=== PATIENT | male | born 1975 | race African-American/Black ===

== ENCOUNTER 2017-04-16 00:09 | Emergency (ER) | payer MEDICAID ==
[~2017-04-16] VITALS: Ht 167.6 cm; Wt 63.6 kg
[2017-04-16] MEDS ORDERED: FLUO-191 PO (00:23)
[2017-04-16] MEDS ORDERED: ABAC1TAB15 PO (00:23)
[2017-04-16] MEDS ORDERED: SULF1TAB42 PO (00:23)
[2017-04-16] MEDS ORDERED: TRAM50TA4 PO (00:23)
[2017-04-16] MEDS ORDERED: HYDR25TA PO (00:23)
[2017-04-16] MEDS ORDERED: HYDROCHLOROTHIAZIDE 25 MG TABLET PO ONE (01:00)
[2017-04-16 02:18] VITALS: BP 160/98
== END 2017-04-16 02:21 | disposition home or self-care (01) ==
LOC: EMS 00:10
DX: F41.9 Anxiety disorder, unspecified (principal); F19.10 Other psychoactive substance abuse, uncomplicated; F15.10 Other stimulant abuse, uncomplicated; F32.9 Major depressive disorder, single episode, unspecified; I10 Essential (primary) hypertension; F17.210 Nicotine dependence, cigarettes, uncomplicated; Z88.6 Allergy status to analgesic agent
CPT/HCPCS: 99283; 99284; 99406

== ENCOUNTER 2017-04-17 10:05 | Inpatient (IN) | payer MEDICAID ==
[~2017-04-17] VITALS: Ht 165.1 cm; Wt 55.1 kg
[~2017-04-17 10:05] MED LIST: ABAC1TAB15 PO; FLUO-191 PO; HYDR25TA PO; SULF1TAB42 PO; TRAM50TA4 PO
[2017-04-17 10:44] LABS: BASOPHILS % (AUTO) 0.3 % (0.0-2.0); EOSINOPHILS % (AUTO) 0.7 % (1.0-6.0); HEMATOCRIT 46.2 % (41-53); HEMOGLOBIN 15.9 g/dL (13.5-17.5); LYMPHOCYTES # (AUTO) 1.4 K/uL (1.0-4.8); LYMPHOCYTES % (AUTO) 13.7 % (22.0-44.0); MEAN CORPUSCULAR HEMOGLOBIN 31.4 pg (26.0-34.0); MEAN CORPUSCULAR HGB CONC 34.4 G/dL (31.0-37.0); MEAN CORPUSCULAR VOLUME 91 fL (80-100); MONOCYTES # (AUTO) 0.9 K/uL (0.1-1.0); MONOCYTES % (AUTO) 8.4 % (2.0-9.0); NEUTROPHILS # (AUTO) 7.9 K/uL (1.8-7.7); NEUTROPHILS % (AUTO) 76.9 % (40.0-70.0); PLATELET COUNT (AUTO) 359 K/uL (150-450); RED BLOOD CELL COUNT(AUTO) 5.07 MIL/uL (4.50-5.90); RED CELL DISTRIBUTION WIDTH 13.7 % (11.5-14.5); WHITE BLOOD COUNT (AUTO) 10.2 K/uL (4.5-11.0)
[2017-04-17 10:47] LABS: ANION GAP 14 mmol/L (8-16); CALCIUM, TOTAL 10.4 mg/dL (8.8-10.5); CARBON DIOXIDE 25 mmol/L (22-29); CHLORIDE 98 mmol/L (98-107); CREATININE 2.48 mg/dL (0.60-1.30); GLOMERULAR FILTR. RATE CALC 35 mL/min (>60); POTASSIUM 3.8 mmol/L (3.5-5.1); SODIUM SERUM 137 mmol/L (136-145); UREA NITROGEN, BLOOD 20 mg/dL (7-18)
[2017-04-17 10:53] LABS: ALANINE AMINOTRANSFERASE 25 U/L (12-78); ASPARTATE AMINOTRANSFERASE 50 U/L (15-37); BILIRUBIN,TOTAL 0.8 mg/dL (0.1-1.0); TOTAL PROTEIN, SERUM 9.8 g/dL (6.4-8.2)
[2017-04-17] MEDS ORDERED: HALOPERIDOL 5 MG TABLET PO ONE (11:15)
[2017-04-17] MEDS ORDERED: LORazepam 1 MG TABLET PO ONE ×2 (11:15→12:45)
[2017-04-17] MEDS ORDERED: LORazepam 2 MG TABLET PO PRN (12:45)
[2017-04-17] MEDS ORDERED: CloNIDine HCL 0.1 MG TABLET PO ONE (12:45)
[2017-04-17] MEDS ORDERED: SODIUM CHLORIDE 0.9% 1,000 ML IV ONE (12:45)
[2017-04-17] MEDS ORDERED: ZOLPIDEM TARTRATE 10 MG TABLET PO PRN (12:45)
[2017-04-17] MEDS ORDERED: HALOPERIDOL 5 MG TABLET PO PRN (12:45)
[2017-04-17 13:04] LABS: CHOL/HDL RATIO 2.2 (4.2-7.3)
[2017-04-17 18:02] VITALS: BP 130/67
[2017-04-17] MEDS ORDERED: PNEUMOCOCCAL VACCINE POLYVALENT 0.5 ML VIAL [PPSV23] IM ONE (20:15)
[2017-04-18 06:07] VITALS: BP 107/68
[2017-04-18 08:17] VITALS: BP 116/69
[2017-04-18] MEDS: RisperiDONE 2 MG TABLET PO SCH (10:28)
[2017-04-18] MEDS: FLUoxetine HCL 20 MG CAPSULE PO SCH (10:28)
[2017-04-18] MEDS ORDERED: MAGNESIUM HYDROXIDE SUSPENSION 30 ML UDCUP PO PRN (10:45)
[2017-04-18] MEDS ORDERED: ALBUTEROL SULFATE HFA 90 MCG/PUFF 8 GM INHALER IH PRN (10:45)
[2017-04-18] MEDS ORDERED: PETROLATUM,WHITE 71 GM JELLY TP PRN (10:45)
[2017-04-18] MEDS ORDERED: IBUPROFEN 600 MG TABLET PO PRN (10:45)
[2017-04-18] MEDS ORDERED: BACITRACIN 28.4 GM OINTMENT TP PRN (10:45)
[2017-04-18] MEDS ORDERED: CloNIDine HCL 0.1 MG TABLET PO PRN (10:45)
[2017-04-18] MEDS ORDERED: MAG HYDROX/AL HYDROX/SIMETH ES 30 ML SUSPENSION UDCUP PO PRN (10:45)
[2017-04-18] MEDS ORDERED: BENZOCAINE/MENTHOL LOZENGE MM PRN (10:45)
[2017-04-18] MEDS ORDERED: ONDANSETRON HCL 4 MG TABLET PO PRN (10:45)
[2017-04-18] MEDS ORDERED: LOPERAMIDE HCL 2 MG CAPSULE PO PRN (10:45)
[2017-04-18 16:24] VITALS: BP 117/64
[2017-04-18] MEDS: DOLUTEGRAVIR SODIUM 50 MG TABLET PO SCH (16:42)
[2017-04-18] MEDS: ABACAVIR SULFATE 300 MG TABLET PO SCH (16:42)
[2017-04-19 00:54] VITALS: BP 110/70
[2017-04-19 08:26] LABS: APPEARANCE,URINE CLOUDY (CLEAR); GLUCOSE, URINE (UA) NEGATIVE (NEGATIVE); KETONES,URINE 15 mg/dL (NEGATIVE); LEUKOCYTE ESTERASE ,URINE LARGE (NEGATIVE); OCCULT BLOOD,URINE MODERATE (NEGATIVE); PROTEIN,URINE NEGATIVE (NEGATIVE)
[2017-04-19 08:29] VITALS: BP 127/78
[2017-04-19 08:52] LABS: ADD UA MICROSCOPIC YES
[2017-04-19 09:04] LABS: SQUAMOUS EPITHELIAL CELL,UR Few /LPF (None Seen)
[2017-04-19] MEDS: FLUoxetine HCL 20 MG CAPSULE PO SCH (09:54)
[2017-04-19] MEDS: RisperiDONE 2 MG TABLET PO SCH (09:54)
[2017-04-19] MEDS: ABACAVIR SULFATE 300 MG TABLET PO SCH (09:54)
[2017-04-19] MEDS: DOLUTEGRAVIR SODIUM 50 MG TABLET PO SCH (09:54)
[2017-04-19 16:44] VITALS: BP 132/76
[2017-04-19 21:07] VITALS: BP 125/74
[2017-04-20 00:08] VITALS: BP 112/77
[2017-04-20 08:26] LABS: HEMOGLOBIN A1C 5.6 % (4.5-6.2)
[2017-04-20 08:33] LABS: ANION GAP 10 mmol/L (8-16); CALCIUM, TOTAL 9.4 mg/dL (8.8-10.5); CARBON DIOXIDE 26 mmol/L (22-29); CHLORIDE 102 mmol/L (98-107); CREATININE 1.04 mg/dL (0.60-1.30); GLOMERULAR FILTR. RATE CALC > 60 mL/min (>60); POTASSIUM 3.9 mmol/L (3.5-5.1); SODIUM SERUM 138 mmol/L (136-145); UREA NITROGEN, BLOOD 11 mg/dL (7-18)
[2017-04-20] MEDS: ABACAVIR SULFATE 300 MG TABLET PO SCH (08:51)
[2017-04-20] MEDS: RisperiDONE 2 MG TABLET PO SCH (08:51)
[2017-04-20] MEDS: FLUoxetine HCL 20 MG CAPSULE PO SCH (08:51)
[2017-04-20] MEDS: DOLUTEGRAVIR SODIUM 50 MG TABLET PO SCH (08:52)
[2017-04-20 09:05] VITALS: BP 114/86
[2017-04-20] MEDS ORDERED: ABAC300T8 PO (09:13)
[2017-04-20] MEDS ORDERED: LAMI300T PO (09:13)
[2017-04-20] MEDS ORDERED: RISP1TAB89 PO (09:13)
[2017-04-20] MEDS ORDERED: CIPROFLOXACIN HCL 500 MG TABLET PO SCH (09:30)
[2017-04-20] MEDS ORDERED: CIPR-279 PO (09:59)
== END 2017-04-20 13:32 | disposition home or self-care (01) | DRG 751 ==
LOC: EEVIPCON 10:07 → EMS 10:07 → B2S 16:03
PROVIDERS: ADMIT Psychiatry & Neurology Child & Adolescent Psychiatry; ATTEND Psychiatry & Neurology Child & Adolescent Psychiatry
DX: F32.3 Major depressive disorder, single episode, severe with psychotic features (principal); R45.851 Suicidal ideations; N19 Unspecified kidney failure; J44.9 Chronic obstructive pulmonary disease, unspecified; I10 Essential (primary) hypertension; B19.20 Unspecified viral hepatitis C without hepatic coma; F12.90 Cannabis use, unspecified, uncomplicated; F15.10 Other stimulant abuse, uncomplicated; F17.200 Nicotine dependence, unspecified, uncomplicated; R73.9 Hyperglycemia, unspecified
CPT/HCPCS: 80307; 82306; 83036; 84443; 87086; 96360; 96361; 99285; 99406; G0480; J7030